=== PATIENT | male | born 1950 | race Caucasian/White ===

== ENCOUNTER 2020-09-29 11:24 | Outpatient (CLI) | payer OTHER, SELFPAY ==
--- NOTE | 2020-09-29 11:34 | US_ITS ---
WS: [id number] ULTRASOUND SOFT TISSUES RIGHT groin. HISTORY: R GROIN PAIN COMPARISON: None available. TECHNIQUE: 2-D and color Doppler imaging is submitted. There is a large amount shadowing in the region of the RIGHT groin. No peristalsing loop of bowel. Th is area of shadowing measures 3.3 x 2.5 x 1.6 cm. This may be herniated omental fat along the inguina l canal. Without peristalsis less likely bowel unless the bowel is ischemic. Patient was not complain ing of pain. US/US soft tissue/extremity 64997 IMPRESSION: 1. Shadowing and ill-defined mass in the RIGHT groin. There are no peristalsin g loops. This is probably herniated fat along the inguinal canal. May potential ly be ischemic bowel but the patient was not complaining of discomfort to corre spond with ischemia. 2. Consider follow-up CT evaluation of the abdomen and pelvis to confirm findi ngs.
== END 2020-09-29 11:25 | disposition home or self-care (01) ==
LOC: RAD 11:28
PROVIDERS: PCP Nurse Practitioner; Visit Provider Nurse Practitioner
DX: R10.9 Unspecified abdominal pain (principal)
CPT/HCPCS: 76882

== ENCOUNTER 2020-10-21 11:42 | Outpatient (CLI) | payer OTHER, SELFPAY ==
--- NOTE | 2020-10-21 11:53 | CT_ITS ---
WS: [id number] CT ABDOMEN AND PELVIS WITH CONTRAST HISTORY: ? MASS/HERNIA TECHNIQUE: Imaging performed of the abdomen and pelvis with IV contrast. Single phase imaging of the abdomen. Coronal and sagittal reformats are submitted. All CT scans at [facility] use at least one of these dose optimization techniques: automated exposure control; mA and/or kV adjustment per patient size (includes targeted exams where dose is matched to clinical indication); or iterativ e reconstruction. IV CONTRAST: Omnipaque 300; 95 mL IV. Oral contrast: Yes. DLP: 1107.38 mGycm COMPARISON: Ultrasound 09/29/2020 Lower thorax: Chronic emphysematous changes at the lung bases. Heart is normal size. No hiatal hernia . Liver/biliary system: Normal size with no intrahepatic dilatation. Gallbladder: Status post cholecystectomy. Pancreas: Normal. Spleen: Normal. Adrenal glands: Normal. Right kidney: Normal. Left kidney: Normal. Aorta: Moderate atherosclerosis within the abdominal aorta and involving the proximal mesenteric eve hany. There is mild to the maximum transverse diameter of 2.7 cm. Scattered calcified plaque and inti mal thickening within the aorta. Atherosclerotic changes extend into the iliac arteries bilaterally. Lymphadenopathy: None. Free fluid: None. GI tract: No obstruction. The appendix is normal. There are a few scattered diverticula mild sigmoid wall thickening. No acute diverticulitis or obstruction. Abdominal wall: Unremarkable abdominal wall. No hernia. Pelvis: Well-distended urinary bladder. Urinary bladder thickening anteriorly and to the RIGHT. The t hickening of the urinary bladder wall extends into the RIGHT inguinal canal. There is a patent inguin al canal with increased soft tissue which is contiguous with the urinary bladder. There is a soft tis mis density was corresponds to the findings on the recent ultrasound. This is not fluid density. Both inguinal canals are patent. Prior hernia repair noted on the RIGHT with surgical clips present. Bones: Thoracolumbar scoliosis with asymmetric disc space narrowing. CT/CT abdomen pelvis w con* [id number] IMPRESSION: 1. Increased soft tissue tissue extending into the RIGHT inguinal canal is con tiguous with the urinary bladder and bladder wall thickening. This may be part of the urinary bladder extending into the inguinal canal with adjacent inflamma tion. Soft tissue tumor cannot be excluded. Recommend further evaluation. Cysto scopy may be necessary. No GI tract herniation into the inguinal canal. 2. Prior cholecystectomy. 3. Normal appendix. 4. Moderate atherosclerotic changes within the abdominal aorta and iliac arter ies with no aneurysm. 5. Mild thickening of the sigmoid with sigmoid diverticulosis.
[2020-10-21] MEDS: iohexol 300 mg/mL 50 mL Btl PO (11:59)
[2020-10-21] MEDS: iohexol 300 mg/mL 100 mL Btl IV (13:43)
[2020-10-21 14:26] LABS: Blood Urea Nitrogen 16 mg/dL (8-23)
== END 2020-10-21 11:43 | disposition home or self-care (01) ==
LOC: RADWPI 11:44
PROVIDERS: PCP Nurse Practitioner; Visit Provider Nurse Practitioner
DX: R22.2 Localized swelling, mass and lump, trunk (principal); Z90.49 Acquired absence of other specified parts of digestive tract
CPT/HCPCS: 74177; 82565; 84520; Q9967

== ENCOUNTER → 2020-12-23 15:04 | Outpatient (BNVA) | payer OTHER, SELFPAY | PROVIDERS: PCP Nurse Practitioner; Visit Provider Surgery | DX: Z20.822 Contact with and (suspected) exposure to COVID-19 (principal); Z12.11 Encounter for screening for malignant neoplasm of colon | CPT/HCPCS: 87635 ==

== ENCOUNTER 2020-12-30 08:27 | Day surgery (SDC) | payer OTHER, SELFPAY ==
[2020-12-26 08:20] VITALS: BMI 26.9
--- NOTE | 2020-12-30 09:23 | ANES.PREANE2 ---
Pre-Anesthetic Assessment Pre-Anesthetic Assessment: Height/Weight: Height 1.78 m Weight 85.275 kg Proposed Procedure: Operation Date: 12/30/20 11:30 Proposed Procedures p Colonoscopy 44531 Z12.11(Not Applicable) - Matt Vicente MD Was Beta Lisa taken within 24 hours: N/A Was Clonidine taken within 24 hours: N/A Social: Social History: Tobacco and No alcohol Exam: Pre-Anes Outpt Exam: alert, oriented x 3 and regular rate & rhythm Airway: Submandibular: WNL Cervical ROM: WNL MP: 2 Dentition: False Pulmonary: Pulmonary: COPD Metabolic: Metabolic: Hyperlipidemia Neuropsych: Neuropsych: Anxiety Anesthetic Plan: ASA status: 3 Anesthesia: MAC Risk of > 500 ml blood loss (7ml/kg in children): No PFSH Anesthesia PFSH: Medical History Anxiety Diabetes Hyperlipidemia Osteoarthritis Panic disorder with agoraphobia PTSD (post-traumatic stress disorder) Surgical History History of bilateral inguinal hernia repair History of cholecystectomy Status post colonoscopy Family History Denies family history of Anesthesia complication Bleeding disorder Social History Smoking and tobacco status: former smoker Alcohol intake: former Data Anesthesia Cardiac Studies: No Data to Display
[2020-12-30 10:21] VITALS: BP 164/79; PULSE 43; RESP 18; TEMP 35.8; O2SAT 99
[2020-12-30] MEDS: sodium chloride 0.9% 1,000 ML 30 ML IV (10:30)
[2020-12-30 10:55] LABS: Glucose Point of Care 119 mg/dL (70-110)
--- NOTE | 2020-12-30 12:21 | W.PM.OPSUD ---
Surgery/Procedure H&P Update DATE OF PROCEDURE: December 30, 2020 DATE H&P PERFORMED: 12/23/20 H&P UPDATE INFORMATION: I have reviewed H&P completed within last 30 days, I have examined patient prior to procedure and No changes to prior documentation PLANNED PROCEDURE: Operation Date: 12/30/20 11:30 Proposed Procedures p Colonoscopy 30589 Z12.11(Not Applicable) - Matt Vicente MD
[2020-12-30 13:02] VITALS: BP 107/77; PULSE 104; RESP 18; TEMP 36.4; O2SAT 95
[2020-12-30 13:17] VITALS: BP 109/84; PULSE 99; RESP 18; TEMP 36.6; O2SAT 96
== END 2020-12-30 13:40 | disposition home or self-care (01) ==
PROVIDERS: PCP Nurse Practitioner; Visit Provider Surgery
PROC: 0DJD8ZZ Inspection of Lower Intestinal Tract, Via Natural or Artificial Opening Endoscopic (ICD-10-PCS; CPT 45378; principal; 2020-12-30 11:30)
DX: Z12.11 Encounter for screening for malignant neoplasm of colon (principal); F41.9 Anxiety disorder, unspecified; E11.9 Type 2 diabetes mellitus without complications; Z79.84 Long term (current) use of oral hypoglycemic drugs; E78.5 Hyperlipidemia, unspecified; M19.90 Unspecified osteoarthritis, unspecified site; Z87.891 Personal history of nicotine dependence; K63.5 Polyp of colon; K64.8 Other hemorrhoids; J44.9 Chronic obstructive pulmonary disease, unspecified
CPT/HCPCS: 36416; 45380; 82962; 88305; 96360; 96361; J2704; J7030